=== PATIENT | female | born 1950 | race African-American/Black ===

== ENCOUNTER 2017-03-04 13:26 | Emergency (ER) | payer SELFPAY ==
[2017-03-04] MEDS ORDERED: HYDROcod/ACETAM 5/325 MG TABLET PO STA (14:13)
--- NOTE | 2017-03-04 14:13 | ED Physician Documentation ---
PD HPI UPPER EXT INJURY - Stated complaint Stated Complaint: LEFT ARM INJ - Chief complaint Chief Complaint: Ext Problem - History obtained from History obtained from: Patient, Family - History of Present Illness Location: Left, Forearm, Wrist Type of injury: Fall Where injury occurred: Street Timing - onset: How many hours ago (1) Timing - duration: Hours (2) Timing - details: Abrupt onset Pain level max: 8 Improved by: Rest, Ice, Immobilization Worsened by: Moving, Palpating Associated symptoms: Swelling. No: Weakness, Numbness, Tingling Contributing factors: No: Anticoagulated Similar symptoms before: Has not had sx before Recently seen: Not recently seen Review of Systems Constitutional: denies: Fever, Chills Respiratory: denies: Cough GI: denies: Abdominal Pain, Nausea, Vomiting, Diarrhea Skin: denies: Rash Musculoskeletal: denies: Neck pain, Back pain Neurologic: denies: Focal weakness, Numbness, Headache PD PAST MEDICAL HISTORY - Past Medical History Past Medical History: Yes Respiratory: Asthma - Past Surgical History Past Surgical History: No - Present Medications Home Medications: Ambulatory Orders Medication Instructions Recorded Confirmed Hydrocodone/Acetaminophen 1 - 2 each PO Q6H PRN #20 tablet 03/04/17 [Hydrocodon-Acetaminophen 5-325] - Allergies Allergies/Adverse Reactions: Allergies Allergy/AdvReac Type Severity Reaction Status Date / Time Penicillins Allergy Edema Verified 03/04/17 13:38 - Social History Does the pt smoke?: No Smoking Status: Never smoker Does the pt drink ETOH?: No Does the pt have substance abuse?: No PD ED PE NORMAL - Vitals Vital signs reviewed: Yes - General General: Alert and oriented X 3, No acute distress - HEENT HEENT: Atraumatic, PERRL, Moist mucous membranes - Neck Neck: Supple, no meningeal sign, No bony TTP - Back Back: No spinal TTP - Derm Derm: Warm and dry - Extremities Extremities: Other (L forearm mild deformity, swelling. NVI. ) - Neuro Neuro: Alert and oriented X 3 - Psych Psych: Normal mood, Normal affect Results - Vitals Vitals: Vital Signs - 24 hr 03/04/17 03/04/17 13:35 15:40 Temperature 36.8 C Heart Rate 110 H 95 Respiratory 16 16 Rate Blood Pressure 151/92 H 142/88 H O2 Saturation 98 97 Oxygen O2 Source Room air - Rads (name of study) L wrist xray Radiology: Prelim report reviewed, EMP read contemporaneously, See rad report ( Radial diaphysis fracture with 22 degrees of angulation. Nondisplaced ulnar styloid fracture. Subluxation of the distal radius and ulna articulation. ) L forearm xray Radiology: Prelim report reviewed, EMP read contemporaneously, See rad report ( Distal radius fracture with 6 mm of displacement and 20 degrees of angulation. ) PD MEDICAL DECISION MAKING - ED course Complexity details: reviewed results, re-evaluated patient, considered differential, d/w patient, d/w family, d/w senior analytic consultant (1500 - Dr. Guo f/u clinic Mon or for surgery scheduling) ED course: Patient is a 66-year-old female who presents to the emergency department with a distal radius fracture, she does not have any issues of the elbow on x-ray. Possible disruption of the radial ulnar joint on wrist x-ray. Discussed the case with Dr. Guo, orthopedics who does not recommend attempting closed reduction at this time, rather splint and a bulky splint and follow-up in clinic for surgery. Patient is comfortable with this plan. She is neurovascularly intact. Patient and family counseled regarding signs and symptoms for which I believe and urgent re-evaluation would be necessary. Patient with good understanding of and agreement to plan and is comfortable going home at this time This document was made in part using voice recognition software. While efforts are made to proofread this document, sound alike and grammatical errors may occur. Departure - Departure Disposition: 01 Home, Self Care Clinical Impression: Fracture of radial shaft, closed Qualifiers: Encounter type: initial encounter Fracture morphology: oblique Fracture alignment: displaced Laterality: left Qualified Code(s): S52.332A - Displaced oblique fracture of shaft of left radius, initial encounter for closed fracture Galeazzi's fracture of left radius Qualifiers: Encounter type: initial encounter Fracture type: closed Qualified Code(s): S52.372A - Galeazzi's fracture of left radius, initial encounter for closed fracture Condition: Good Instructions: ED Fx Upper Ext Follow-Up: [facility] [Provider Group] - Within 3 Days (Call the clinic for an appointment on Mon or with Dr. Guo or Dr. Piña. ) Prescriptions: Hydrocodone/Acetaminophen [Hydrocodon-Acetaminophen 5-325] 1 - 2 each PO Q6H PRN #20 tablet PRN Reason: pain Comments: This fracture will require operative repair. Return if you worsen. You need to follow-up with orthopedics on Monday or Monday to have the surgery scheduled. I spoke with Dr. Guo today. Do not drink alcohol or drive while on narcotic pain medicine. Note that many narcotic pain relievers also contain tylenol/acetaminophen. Please ensure that your total dose of acetaminophen from all sources does not exceed 3 grams (3000mg) per day. You may constipated on this medication, take a stool softener such as "Colace" twice a day while you are on it. Also recommend a vxku-qpc-paxoeii laxative such as senna or MiraLAX any day that you do not have a bowel movement. If you received narcotic pain medication in the emergency department, do not drive or operate machinery for the next 24 hours. Discharge Date/Time: 03/04/17 15:40
[2017-03-04] MEDS ORDERED: HYDROcod/ACETAM 5/325 MG TABLET ONE (14:24)
--- NOTE | 2017-03-04 14:55 | XRAY Preliminary Report ---
Exam: XR Wrist 4 View LT IMPRESSION: 1. Radial diaphysis fracture with 22 degrees of angulation. Nondisplaced ulnar styloid fracture. 2. Subluxation of the distal radius and ulna articulation. [facility] SITE ID: [id number]
--- NOTE | 2017-03-04 14:57 | XRAY Preliminary Report ---
Exam: XR Forearm LT IMPRESSION: 1. Distal radius fracture with 6 mm of displacement and 20 degrees of angulation. [facility] SITE ID: [id number]
--- NOTE | 2017-03-04 14:58 | XRAY Report ---
EXAM: LEFT WRIST RADIOGRAPHY EXAM DATE: 03/04/2017 02:39 PM. CLINICAL HISTORY: Fall with wrist deformity. COMPARISON: None. TECHNIQUE: 4 views. FINDINGS: Bones: Positive for an angulated fracture of the radial diaphysis. This fracture shows 22 degrees of angulation. There is no ulnar styloid avulsion fracture without displacement. Joints: There is subluxation of the articulation between the distal radius and ulna. The radial carpa l alignment appears satisfactory. Soft Tissues: There is forearm soft tissue swelling. IMPRESSION: 1. Radial diaphysis fracture with 22 degrees of angulation. Nondisplaced ulnar styloid fracture. 2. Subluxation of the distal radius and ulna articulation. [facility] Referring Provider Line: [phone] SITE ID: [id number]
--- NOTE | 2017-03-04 14:59 | XRAY Report ---
EXAM: LEFT FOREARM RADIOGRAPHY EXAM DATE: 03/04/2017 02:38 PM. CLINICAL HISTORY: Fall with wrist deformity. COMPARISON: None. TECHNIQUE: 2 views. FINDINGS: Bones: There is a fracture of the radial diaphysis with approximately 20 degrees of angulation. There is 6 mm of displacement. No proximal forearm fracture. Joints: No dislocation. Soft Tissues: There is soft tissue swelling of the distal forearm. IMPRESSION: 1. Distal radius fracture with 6 mm of displacement and 20 degrees of angulation. [facility] Referring Provider Line: [phone] SITE ID: [id number]
[2017-03-04 15:42] VITALS: BP 142/88
== END 2017-03-04 15:40 | disposition home or self-care (01) ==
LOC: ED 13:26
DX: S52.332A Displaced oblique fracture of shaft of left radius, initial encounter for closed fracture (principal); S52.372A Galeazzi's fracture of left radius, initial encounter for closed fracture; S52.615A Nondisplaced fracture of left ulna styloid process, initial encounter for closed fracture; W01.0XXA Fall on same level from slipping, tripping and stumbling without subsequent striking against object, initial encounter; Y92.488 Other paved roadways as the place of occurrence of the external cause; J45.909 Unspecified asthma, uncomplicated
CPT/HCPCS: 29105; 73090; 73110; 99282; 99283; A9270

== ENCOUNTER 2017-03-07 13:29 | Day surgery (SDC) | payer SELFPAY ==
[2017-03-07] MEDS ORDERED: LACTATED RINGERS 1,000 ML IV ONE ×2 (13:42→15:39)
[2017-03-07] MEDS ORDERED: CLINDAMYCIN 600 MG/50 ML 50 ML IV ONE (14:06)
[2017-03-07] MEDS ORDERED: BUPIVACAINE 0.5%-EPI 1:200000 PF 30 ML VIAL SUBQ ONE ×2 (14:56)
[2017-03-07] MEDS ORDERED: DEXAMETHASONE 4 MG/ML VIAL IVP ONE (15:45)
[2017-03-07] MEDS ORDERED: PROPOFOL 200 MG/20 ML VIAL IVP ONE (15:45)
[2017-03-07] MEDS ORDERED: ONDANSETRON 4 MG/2 ML VIAL IVP ONE (15:45)
[2017-03-07] MEDS ORDERED: fentaNYL 100 MCG/2 ML VIAL IVP ONE (15:45)
[2017-03-07] MEDS ORDERED: LIDOCAINE-MPF 2% 5 ML VIAL IM ONE (15:45)
[2017-03-07] MEDS ORDERED: MIDAZOLAM 2 MG/2 ML VIAL IVP ONE (15:45)
[2017-03-07] MEDS: fentaNYL 100 MCG/2 ML VIAL ONE ×3 (16:14→16:29)
[2017-03-07] MEDS ORDERED: KETOROLAC 15 MG/ML VIAL ONE (16:19)
[2017-03-07] MEDS ORDERED: oxyCOD/ACETAMIN 5 MG/325 MG TABLET PO ONE (17:12)
--- NOTE | 2017-03-07 17:52 | OPERATIVE REPORT ---
DATE OF SURGERY: 03/07/2017 00:00:00 PREOPERATIVE DIAGNOSIS: Left forearm Galeazzi fracture dislocation. POSTOPERATIVE DIAGNOSIS: Left forearm Galeazzi fracture dislocation. NAME OF PROCEDURE: Open reduction internal fixation of left distal radial fracture and casting. SURGEON: Ross Guo MD ANESTHESIA: General, Manav Foreman CRNA INDICATIONS FOR SURGERY: The patient is a 66-year-old female who resides in [place]. She was here [facility] and suffered a ground level fall, fracturing her distal radius and causing a Galeazzi injury wit h disruption of her distal radioulnar joint. Surgery was recommended and the patient was informed and elected to proceed with that today. FINDINGS AT SURGERY: The patient's forearm showed deformity and instability of her radial fracture. U fadi reduction of her fracture and stable fixation, the patient had popping in her distal radial ulnar joint due to instability which corrected in supination. The patient's C-arm images of the plated rad ius showed anatomic latter-day. DESCRIPTION OF OPERATIVE PROCEDURE: The patient was taken to the operating room, given a general anes thetic. Her left arm was sterilely prepped and draped in standard fashion. The patient's radius was a pproached through a longitudinal incision over the brachial radialis muscle on the radial side of the forearm. Careful dissection was made through skin and subcutaneous tissue, allowing dissection throu gh the forearm fascia and through an intramuscular plane down to the radial shaft. The fracture was e xposed. The fracture was reduced and a 3.5 locking plate by [employer] was used, contoured to the distal radius and applied and affixed using AO technique with initial provisional screw to hold the plate i n place, followed by compression and then locking screws. Stability was excellent and reduction excel lent. The forearm was then checked through supination and pronation and the distal radial joint was u nstable in pronation and required supination for latter-day of alignment and stability and it was el ected at this point to treat the patient with above the elbow fiberglass casting which was applied ov er sterile dressings on the forearm. This cast was univalved for swelling control. Postop, the patien t was taken to recovery room in stable condition. ESTIMATED BLOOD LOSS: Minimal. COMPLICATIONS: None. SPONGE AND NEEDLE COUNTS: Correct. JOB #: [id number] EXT JOB #:[id number]
[2017-03-07 18:00] VITALS: BP 148/70
== END 2017-03-07 13:30 | disposition home or self-care (01) ==
LOC: SDS 13:29
PROVIDERS: ATTEND Orthopaedic Surgery
PROC: 0PSH04Z Reposition Right Radius with Internal Fixation Device, Open Approach (ICD-10-PCS; principal; 2017-03-07 14:00)
DX: S52.372A Galeazzi's fracture of left radius, initial encounter for closed fracture (principal); W19.XXXA Unspecified fall, initial encounter
CPT/HCPCS: 25525; A9270; J7120